=== PATIENT | male | born 1985 | race Caucasian/White ===

== ENCOUNTER 2019-06-28 12:51 | Emergency (ER) | payer OTHER ==
[~2019-06-28] VITALS: Ht 175.3 cm; Wt 136.0 kg
[2019-06-28 13:46] VITALS: BP 139/91
[2019-06-28] MEDS ORDERED: ibuprofen tablet 400 MG TABLET PO ONE (15:00)
== END 2019-06-28 15:56 | disposition home or self-care (01) ==
LOC: ER 12:52
DX: M54.5 Low back pain (principal); V87.7XXA Person injured in collision between other specified motor vehicles (traffic), initial encounter; Y93.89 Activity, other specified; Y92.488 Other paved roadways as the place of occurrence of the external cause; Y99.8 Other external cause status
CPT/HCPCS: 72100; 99283